=== PATIENT | female | born 1995 | race Caucasian/White ===

== ENCOUNTER 2017-08-26 12:05 | Emergency (ER) | payer SELFPAY ==
[~2017-08-26] VITALS: Ht 162.6 cm; Wt 59.0 kg
--- NOTE | 2017-08-26 12:45 | Diagnostic Imaging Report ---
PROCEDURE:ELBOW RIGHT COMPLETE TECHNIQUE:AP, lateral and oblique views right elbow totaling 5 radiographs INDICATION:Fall COMPARISON:None. FINDINGS: Displaced fracture of the lateral condyle with associated effusion. Radius and ulna intact. CONCLUSION: Displaced fracture of the lateral condyle. Dictated by: Anton Verdugo M.D. on 08/26/2017 at 12:46 Electronically approved by: Anton Verdugo M.D. on 08/26/2017 at 12:46
[2017-08-26] MEDS: HYDROCODONE/APAP 10MG-325MG TAB PO ONE (12:51)
[2017-08-26 15:14] VITALS: BP 126/57
== END 2017-08-26 13:07 | disposition home or self-care (01) ==
LOC: ER 12:05
DX: S42.401A Unspecified fracture of lower end of right humerus, initial encounter for closed fracture (principal); W01.0XXA Fall on same level from slipping, tripping and stumbling without subsequent striking against object, initial encounter
CPT/HCPCS: 99283